=== PATIENT | male | born 1970 | race African-American/Black ===

== ENCOUNTER 2019-03-27 12:30 | Inpatient (IN) | payer MEDICAID, OTHER ==
[~2019-03-27] VITALS: Ht 182.9 cm; Wt 63.5 kg
[2019-03-27] MEDS ORDERED: LEVETIRACETAM 1000MG/100ML 100 ML IV ONE (13:00)
[2019-03-27 13:19] LABS: BASOPHILS % 0.4 % (0.0-2.0); EOSINOPHILS % 0.9 % (0.0-5.0); HEMATOCRIT. 39.2 % (42.0-52.0); HEMOGLOBIN. 12.8 g/dL (14.0-18.0); LYMPHOCYTES % 18.8 % (20.0-50.0); MEAN CORPUSCULAR HEMOGLOBIN 28.8 pg (28.0-32.0); MEAN CORPUSCULAR VOLUME 88.5 fL (80.0-94.0); MEAN PLATELET VOLUME 12.9 fl (7.4-10.4); MONOCYTES % 11.2 % (2.0-8.0); NEUTROPHILS % 68.7 % (40.0-76.0); PLATELET 105 x1000/uL (130-400); RED BLOOD CELL COUNT 4.43 mill/uL (4.7-6.1); RED CELL DISTRIBUTION WIDTH 13.9 % (11.6-14.6)
[2019-03-27 13:28] LABS: CHLORIDE 100 mEq/L (98-107)
[2019-03-27 13:33] LABS: ETHANOL BLOOD < 10 mg/dL
[2019-03-27 15:22] LABS: CLARITY URINE CLEAR (CLEAR); COLOR URINE YELLOW (YELLOW); KETONES URINE TRACE (NEGATIVE); LEUKOCYTE ESTERASE URINE NEGATIVE (NEGATIVE); NITRITE URINE NEGATIVE (NEGATIVE); OCCULT BLOOD URINE TRACE (NEGATIVE); PROTEIN URINE 1+ (NEGATIVE); SPECIFIC GRAVITY URINE 1.034 (1.005-1.030); UROBILINOGEN URINE 0.2 E.U./dL (0.2-1.0)
[2019-03-27 15:55] LABS: *AMPHETAMINES SCREEN URINE NEGATIVE (NEGATIVE); *BARBITURATES SCREEN URINE NEGATIVE (NEGATIVE)
[2019-03-27 15:56] LABS: *BENZODIAZEPINES SCREEN URINE NEGATIVE (NEGATIVE); *COCAINE SCREEN URINE PRESUMTIVE POSITIVE (NEGATIVE); METHADONE URINE SCREEN NEGATIVE (NEGATIVE); OPIATES URINE SCREEN NEGATIVE (NEGATIVE)
[2019-03-27 15:57] LABS: CANNABINOID URINE SCREEN NEGATIVE (NEGATIVE); PHENCYCLIDINE URINE SCREEN NEGATIVE (NEGATIVE)
[2019-03-27 23:23] VITALS: BP 149/96
[2019-03-27 23:59] VITALS: BP 145/91
[2019-03-28] MEDS ORDERED: ACETAMINOPHEN 325MG TABLET PO PRN (01:00)
[2019-03-28] MEDS ORDERED: ONDANSETRON HCL 4MG/2ML INJ IV PRN (01:00)
[2019-03-28] MEDS ORDERED: DEXTROSE 50% WATER 50ML SYRINGE IV PRN ×2 (01:15→12:30)
[2019-03-28] MEDS ORDERED: METF-414 MT (03:39)
[2019-03-28 04:00] VITALS: BP 165/88
[2019-03-28 06:18] LABS: BASOPHILS % 0.5 % (0.0-2.0); EOSINOPHILS % 2.1 % (0.0-5.0); HEMATOCRIT. 35.2 % (42.0-52.0); HEMOGLOBIN. 11.6 g/dL (14.0-18.0); LYMPHOCYTES % 33.9 % (20.0-50.0); MEAN CORPUSCULAR HEMOGLOBIN 28.8 pg (28.0-32.0); MEAN CORPUSCULAR VOLUME 87.7 fL (80.0-94.0); MONOCYTES % 12.3 % (2.0-8.0); NEUTROPHILS % 51.2 % (40.0-76.0); PLATELET 98 x1000/uL (130-400); RED BLOOD CELL COUNT 4.01 mill/uL (4.7-6.1); RED CELL DISTRIBUTION WIDTH 14.2 % (11.6-14.6)
[2019-03-28 06:41] LABS: CHLORIDE 101 mEq/L (98-107)
[2019-03-28] MEDS ORDERED: CLONIDINE 0.1MG TABLET PO PRN (07:00)
[2019-03-28] MEDS ORDERED: BLOOD SUGAR DIAGNOSTIC STRIP TEST SCH (07:20)
[2019-03-28] MEDS ORDERED: INSULIN LISPRO 100 UNITS/ML SUBCUT SCH (07:50)
[2019-03-28] MEDS ORDERED: POTASSIUM CHLORIDE 20MEQ TABLET SR PO NR (08:15)
[2019-03-28] MEDS ORDERED: ASPIRIN 325MG TABLET PO SCH (09:00)
[2019-03-28] MEDS: LEVETIRACETAM 500MG TABLET PO SCH ×2 (09:06→21:16)
[2019-03-28] MEDS: AMLODIPINE 10MG TABLET PO SCH ×2 (09:07→13:45)
[2019-03-28] MEDS ORDERED: INSULIN GLARGINE UD 100 UNITS/ML SYR SUBCUT SCH (10:00)
[2019-03-28] MEDS: INSULIN LISPRO 100 UNITS/ML SUBCUT SCH ×4 (13:17→23:45)
[2019-03-28] MEDS: BLOOD SUGAR DIAGNOSTIC STRIP TEST SCH ×3 (13:19→21:18)
[2019-03-28] MEDS ORDERED: LORAZEPAM 2MG/ML CPJ IV PRN (13:45)
[2019-03-28] MEDS: LOSARTAN POTASSIUM 50 MG TABLET PO SCH (13:53)
[2019-03-28 20:00] VITALS: BP 136/87
[2019-03-28] MEDS: INSULIN GLARGINE UD 100 UNITS/ML SYR SUBCUT SCH (23:46)
[2019-03-29] VITALS: BP 142/88
[2019-03-29] MEDS: BLOOD SUGAR DIAGNOSTIC STRIP TEST SCH ×2 (07:08→12:20)
[2019-03-29] MEDS: INSULIN LISPRO 100 UNITS/ML SUBCUT SCH ×3 (07:20→12:50)
[2019-03-29 08:00] VITALS: BP 106/71
[2019-03-29] MEDS: LOSARTAN POTASSIUM 50 MG TABLET PO SCH (09:00)
[2019-03-29] MEDS: LEVETIRACETAM 500MG TABLET PO SCH (09:10)
[2019-03-29] MEDS: INSULIN GLARGINE UD 100 UNITS/ML SYR SUBCUT SCH (10:53)
[2019-03-29 12:00] VITALS: BP 141/86
[2019-03-29] MEDS ORDERED: KEPP500 PO (12:01)
[2019-03-29] MEDS ORDERED: LOSA50TA3 PO (12:01)
[2019-03-29] MEDS ORDERED: AMLO10TA80 PO (12:01)
[2019-03-29] MEDS ORDERED: INSU100I28 SQ (13:29)
[2019-03-29 13:42] VITALS: BP 141/86
== END 2019-03-29 14:22 | disposition home or self-care (01) | DRG 53 ==
LOC: ER 12:30 → 6WST 16:01 → EDBEDREQ 16:03 → ENRESERV 19:53
PROVIDERS: ADMIT Internal Medicine; ATTEND Internal Medicine
DX: G40.909 Epilepsy, unspecified, not intractable, without status epilepticus (principal); G92 Toxic encephalopathy; E11.65 Type 2 diabetes mellitus with hyperglycemia; E87.1 Hypo-osmolality and hyponatremia; G45.9 Transient cerebral ischemic attack, unspecified; I16.0 Hypertensive urgency; F14.90 Cocaine use, unspecified, uncomplicated; F17.210 Nicotine dependence, cigarettes, uncomplicated; D64.9 Anemia, unspecified; Z91.14 Patient's other noncompliance with medication regimen; Z79.899 Other long term (current) drug therapy
CPT/HCPCS: 36415; 70551; 71045; 80048; 80053; 80061; 80305; 80320; 81003; 82962; 83036; 84145; 84443; 84484; 85025; 93005; 96365; 99285; J1815; J1953; G0480